=== PATIENT | female | born 1950 | race Caucasian/White ===

== ENCOUNTER 2018-10-11 05:59 | Day surgery (SDC) | payer OTHER ==
--- NOTE | 2018-10-08 16:03 | HP ---
PROCEDURE DATE: 10/11/18 HISTORY OF PRESENT ILLNESS: Patient is a 68 y/o with some bloating. Feels likes she squawks, uncomfortable, worse not eating, worse with eating. Is taking omeprazole. History of aspiration pneumonia prior to that. Doing better with her recent proton pump inhibitor. She is in need of upper endoscopy for further evaluation. She had prior US, didn't show any obvious gallstones, in the past. PAST MEDICAL HISTORY: Heart disease, hypertension, and reflux. PAST SURGICAL HISTORY: She had open heart surgery, left foot tendon, she had partial hysterectomy in the past. She also had a cystocele repair in the past. CURRENT MEDICATIONS: Albuterol, Ambien, amlodipine, aspirin, baclofen, benazepril, Breo Ellipta, docusate sodium, furosemide, gabapentin, Lomotil, metoprolol in the past. She has had [place], Pravastatin, Ventolin HFA, and some Xanax in the past. ALLERGIES: SHE IS SENSITIVE TO BENADRYL. FAMILY HISTORY: Heart disease, cancer, diabetes, and hypertension. SOCIAL HISTORY: No smoking or alcohol abuse. REVIEW OF SYSTEMS: 12 systems reviewed pertinent for as noted above. No chest pain or palpitations. Other systems negative or noncontributory other than per preadmission questionnaire. Has had endoscopy in the past. Had some chronic obstructive pulmonary disease and anxiety in the past. No chest pain or palpitations. Pertinent for the heart disease. PHYSICAL EXAMINATION: GENERAL: No acute distress. HEENT: Sclerae nonicteric. NECK: No JVD. CHEST: Equal excursion. Nonlabored breathing. CVS: Regular rate and rhythm. ABDOMEN: Soft. No peritoneal signs. EXTREMITIES: No significant edema. NEURO: Alert, moving extremities symmetrically. No gross motor deficits noted. IMPRESSION: HISTORY OF GROSS BLOATING WITH GASTRIC DISCOMFORT. [place] the patient would benefit from upper endoscopy to evaluation for gastritis, ulcer disease, esophagitis, or other etiology. Risks and benefits explained in detail, but not limited to, bleeding; infection; risk of bowel injury or perforation possibly requiring open procedure; risk of missed or nondiagnosis or incomplete exam possibly requiring barium swallow or other studies or procedures; general risk of anesthesia or sedation. She understands and agrees to the planned procedure. Will proceed with EGD with possible biopsy as an outpatient. Thanks for the consult.
[2018-10-11] MEDS ORDERED: DIPRIVAN 200 MG/20 ML IV ONE (06:00)
[2018-10-11] MEDS ORDERED: Lactated Ringers 1,000 ML IV ONE (06:56)
[2018-10-11] MEDS ORDERED: Lactated Ringers 1,000 ML IV SCH (07:00)
--- NOTE | 2018-10-11 09:34 | OP ---
SURGERY DATE/TIME: 10/11/2018 0827 PREOPERATIVE DIAGNOSIS: Mid epigastric bloating and discomfort, unusual sound epigastrium. POSTOPERATIVE DIAGNOSES: 1) Erosive gastritis without erosion into the esophagus. 2) Small hiatal hernia. PROCEDURES: 1) EGD with cold biopsy of small bowel to evaluate for sprue. 2) Cold biopsy of the antrum to evaluate for Helicobacter pylori. 3) Cold biopsy random distal esophagus to evaluate for eosinophilic esophagitis. SURGEON: Dr. Koko Marino. ANESTHESIA: MAC. ESTIMATED BLOOD LOSS: Minimal. INDICATIONS: As noted above. Risks and benefits explained in detail and not limited to and consent obtained. DESCRIPTION OF PROCEDURE AND FINDINGS: The patient is taken to the endoscopy room. MAC anesthesia introduced. After official time out and no disagreement with planned procedure, a bite block positioned. Video gastroscope easily passed down the esophagus through the patent pylorus to the junction of the second and third portion of the duodenum. On withdrawal of the scope duodenum and duodenal bulb grossly unremarkable. Given her symptoms cold biopsy taken to evaluate for celiac sprue. Back in the stomach she had some erosive gastritis with some mild inflammation in the distal antrum. No erosion more proximally in the stomach. She did have a small hiatal hernia. The Z-line was crisp. There were no signs of any erosions or ulcers in the esophagus that could be identified. Cold biopsy had been taken in the antrum for Helicobacter pylori. A cold biopsy taken random in the esophagus to evaluate for eosinophilic esophagitis. The scope is withdrawn. The patient tolerated the procedure well. There were no immediate complications. We will see what the results of her gallbladder ultrasound and/or HIDA are. Otherwise she is to work on losing weight to take pressure off her hiatal hernia. Otherwise will see her back in the office next week.
[2018-10-11 09:39] VITALS: BP 132/71; PULSE 58; O2SAT 99
== END 2018-10-11 09:50 | disposition home or self-care (01) ==
LOC: SDC 05:59
PROVIDERS: ATTEND Surgery
DX: K29.00 Acute gastritis without bleeding (principal); K44.9 Diaphragmatic hernia without obstruction or gangrene; R10.13 Epigastric pain
CPT/HCPCS: 88305; J2704